=== PATIENT | female | born 1985 | race African-American/Black ===

== ENCOUNTER 2016-07-05 19:09 | Emergency (ER) | payer SELFPAY ==
[~2016-07-05] VITALS: Ht 157.5 cm; Wt 98.2 kg
[~2016-07-05 19:09] MED LIST: ATARAX 25MG25 MG/TAB PO
[2016-07-05 19:13] VITALS: TEMP 98.9
[2016-07-05] MEDS ORDERED: CELEXA 20MG20 MG/TAB PO (19:17)
[2016-07-05 20:11] LABS: PH 5 (5-8); SQUAMOUS EPITHELIAL 0-2 /hpf; URINE APPEARANCE Clear; URINE BACTERIA Rare /hpf; URINE BILIRUBIN Negative (NEGATIVE); URINE BLOOD 1+ (NEGATIVE); URINE COLOR Yellow; URINE GLUCOSE Negative (NEGATIVE); URINE KETONE Negative (NEGATIVE); URINE RBC 0-2 /hpf; URINE UROBILINOGEN Negative (NEGATIVE)
[2016-07-05 21:00] VITALS: BP 138/78; PULSE 80
== END 2016-07-05 21:01 | disposition home or self-care (01) ==
LOC: COL.ER 19:09
PROVIDERS: Nurse Practitioner
DX: R35.0 Frequency of micturition (principal); Z32.02 Encounter for pregnancy test, result negative; Z97.5 Presence of (intrauterine) contraceptive device; F32.9 Major depressive disorder, single episode, unspecified; F41.9 Anxiety disorder, unspecified

== ENCOUNTER 2016-09-14 13:32 | Emergency (ER) | payer SELFPAY ==
[~2016-09-14] VITALS: Ht 157.5 cm; Wt 96.3 kg
[~2016-09-14 13:32] MED LIST changes: +CELEXA 20MG20 MG/TAB PO
[2016-09-14 13:34] VITALS: TEMP 99.5
[2016-09-14 14:33] LABS: BASO % 0.3 % (0.0-2.0); EOS # 0.1 (0.0-0.7); EOS % 0.4 % (0-4.0); GRAN # 9.5 (1.4-6.5); GRAN % 82.3 % (42.2-75.2); HEMATOCRIT 43.8 % (37.0-47.0); HEMOGLOBIN 14.9 g/dl (12.5-16.0); LYMPH # 1.3 (1.2-3.4); LYMPH % 11.2 % (20.0-51.0); MEAN CELL VOLUME 89 fl (80.0-100.0); MEAN CORPUSCULAR HEMOGLOBIN 30 pg (27.0-31.0); MEAN CORPUSCULAR HGB CONC 34 g/dl (33.0-37.0); MONO # 0.6 (0.1-0.6); MONO % 5.5 % (1.7-9.3); PLATELET COUNT 223 K/mm3 (130-400); RED BLOOD COUNT 4.93 M/mm3 (4.10-5.30); REDCELL DISTRIBUTION WIDTH-CV 11.8 % (11.5-14.5); WHITE BLOOD COUNT 11.5 K/mm3 (4.8-10.8)
[2016-09-14 14:44] LABS: ADJUSTED CALCIUM 9.1 mg/dL (8.4-10.2); ALANINE AMINOTRANSFERASE 24 U/L (9-52); ALKALINE PHOSPHATASE 83 U/L (50-136); ANION GAP 15 mmol/L (7-16); BILIRUBIN,TOTAL 1.5 mg/dL (0.0-1.0); BLOOD UREA NITROGEN 12 mg/dL (7-17); CALCIUM 9.9 mg/dL (8.4-10.2); CARBON DIOXIDE 26 mmol/L (22-30); CHLORIDE 103 mmol/L (98-107); CREATININE, serum 0.87 mg/dL (0.52-1.25); GLUCOSE 89 mg/dL (74-106); POTASSIUM 4.3 mmol/L (3.4-5.0); SODIUM 144 mmol/L (137-145); TOTAL PROTEIN 8.8 gm/dL (6.4-8.2)
[2016-09-14 14:56] LABS: ACETAMINOPHEN < 10 ug/mL (10-30); SALICYLATE < 1.0 mg/dL
[2016-09-14 15:10] LABS: AMPHETAMINE URINE NEGATIVE; BARBITURATES URINE NEGATIVE; BENZODIAZEPINES URINE NEGATIVE; BUPRENORPHINE URINE NEGATIVE; METHADONE URINE NEGATIVE; OPIATES URINE NEGATIVE; OXYCODONE URINE NEGATIVE; PHENCYCLIDINE URINE NEGATIVE; PROPOXYPHENE URINE NEGATIVE; THC CANNABINOIDS URINE NEGATIVE
[2016-09-14 15:40] VITALS: BP 110/60
[2016-09-14 16:33] VITALS: PULSE 79
== END 2016-09-14 17:11 | disposition home or self-care (01) ==
LOC: COL.ER 13:32
PROVIDERS: Physician Assistant
DX: F32.9 Major depressive disorder, single episode, unspecified (principal); F43.9 Reaction to severe stress, unspecified; R45.851 Suicidal ideations; F41.9 Anxiety disorder, unspecified

== ENCOUNTER 2016-10-08 15:58 | Emergency (ER) | payer SELFPAY ==
[~2016-10-08] VITALS: Ht 160 cm; Wt 95.9 kg
[2016-10-08 16:01] VITALS: TEMP 98.8
[2016-10-08 16:32] LABS: BASO % 0.3 % (0.0-2.0); EOS # 0.1 (0.0-0.7); EOS % 1.5 % (0-4.0); GRAN % 68.7 % (42.2-75.2); HEMATOCRIT 38.3 % (37.0-47.0); HEMOGLOBIN 13.1 g/dl (12.5-16.0); LYMPH # 1.6 (1.2-3.4); LYMPH % 21.9 % (20.0-51.0); MEAN CELL VOLUME 91 fl (80.0-100.0); MEAN CORPUSCULAR HEMOGLOBIN 31 pg (27.0-31.0); MEAN CORPUSCULAR HGB CONC 34 g/dl (33.0-37.0); MEAN PLATELET VOLUME 11.2 fl (7.4-10.4); MONO # 0.5 (0.1-0.6); MONO % 7.3 % (1.7-9.3); PLATELET COUNT 195 K/mm3 (130-400); RED BLOOD COUNT 4.23 M/mm3 (4.10-5.30); WHITE BLOOD COUNT 7.2 K/mm3 (4.8-10.8)
[2016-10-08 16:35] LABS: PH 8 (5-8); URINE APPEARANCE Clear; URINE BACTERIA Rare /hpf; URINE BILIRUBIN Negative (NEGATIVE); URINE BLOOD Negative (NEGATIVE); URINE COLOR Straw; URINE GLUCOSE Negative (NEGATIVE); URINE KETONE Negative (NEGATIVE); URINE RBC 0-2 /hpf; URINE UROBILINOGEN Negative (NEGATIVE); URINE WBC 0-2 /hpf
[2016-10-08 16:37] LABS: ADJUSTED CALCIUM 9.2 mg/dL (8.4-10.2); ALBUMIN 4.3 gm/dL (3.5-5.0); BILIRUBIN,TOTAL 0.8 mg/dL (0.0-1.0); CALCIUM 9.4 mg/dL (8.4-10.2); CREATININE, serum 0.66 mg/dL (0.52-1.25); POTASSIUM 3.8 mmol/L (3.4-5.0); TOTAL PROTEIN 7.7 gm/dL (6.4-8.2)
[2016-10-08] MEDS ORDERED: ULTRAM 50MG TAB50 MG PO (17:30)
[2016-10-08] MEDS ORDERED: PRIL40 PO (17:30)
[2016-10-08] MEDS ORDERED: ZOFRAN8 MG PO (17:30)
[2016-10-08 17:49] VITALS: BP 116/73; PULSE 64
== END 2016-10-08 17:51 | disposition home or self-care (01) ==
LOC: COL.ER 15:58
PROVIDERS: Emergency Medicine
DX: R10.13 Epigastric pain (principal); R10.11 Right upper quadrant pain; R63.0 Anorexia; R11.0 Nausea
CPT/HCPCS: J1170; J1885; J2405; J2765; J7030

== ENCOUNTER 2016-12-23 17:49 | Emergency (ER) | payer SELFPAY ==
[~2016-12-23] VITALS: Ht 157.5 cm; Wt 100.0 kg
[~2016-12-23 17:49] MED LIST changes: +PRIL40 PO; +ULTRAM 50MG TAB50 MG PO; +ZOFRAN8 MG PO
[2016-12-23 17:53] VITALS: BP 116/70; TEMP 99
[2016-12-23] MEDS ORDERED: PRENATAL (17:56)
[2016-12-23 18:46] VITALS: PULSE 67
== END 2016-12-23 18:47 | disposition home or self-care (01) ==
LOC: COL.ER 17:49
DX: O21.9 Vomiting of pregnancy, unspecified (principal); O99.341 Other mental disorders complicating pregnancy, first trimester; F32.9 Major depressive disorder, single episode, unspecified; F41.9 Anxiety disorder, unspecified; Z3A.01 Less than 8 weeks gestation of pregnancy; Z98.890 Other specified postprocedural states

== ENCOUNTER 2017-06-22 16:07 | Emergency (ER) | payer MEDICAID ==
[~2017-06-22] VITALS: Ht 154.9 cm; Wt 115.9 kg
[~2017-06-22 16:07] MED LIST changes: +PRENATAL PO
[2017-06-22 16:10] VITALS: TEMP 97.4
[2017-06-22] MEDS ORDERED: CALCIUM CARBON650 M2 PO (16:32)
[2017-06-22 16:33] LABS: COLLECTION METHOD CLEAN CATCH
[2017-06-22 16:40] LABS: PH 5 (5-8); URINE APPEARANCE Clear; URINE BACTERIA Rare /hpf; URINE BILIRUBIN Negative (NEGATIVE); URINE BLOOD Negative (NEGATIVE); URINE COLOR Amber; URINE GLUCOSE Negative (NEGATIVE); URINE KETONE Negative (NEGATIVE); URINE LEUKOCYTE ESTERASE Negative (NEGATIVE); URINE NITRATE Negative (NEGATIVE); URINE PROTEIN(semi-quant) 2+ (NEGATIVE); URINE RBC 0-2 /hpf
[2017-06-22 16:48] LABS: BASO % 0.2 % (0.0-2.0); EOS % 0.3 % (0-4.0); GRAN # 12.9 (1.4-6.5); GRAN % 87.2 % (42.2-75.2); LYMPH # 0.8 (1.2-3.4); LYMPH % 5.3 % (20.0-51.0); MEAN CELL VOLUME 89 fl (80.0-100.0); MEAN CORPUSCULAR HEMOGLOBIN 32 pg (27.0-31.0); MEAN CORPUSCULAR HGB CONC 35 g/dl (33.0-37.0); MONO # 0.9 (0.1-0.6); PLATELET COUNT 153 K/mm3 (130-400); REDCELL DISTRIBUTION WIDTH-CV 13.7 % (11.5-14.5)
[2017-06-22 16:53] LABS: HEMATOCRIT 33.9 % (37.0-47.0)
[2017-06-22 17:02] LABS: ALBUMIN 3.5 gm/dL (3.5-5.0); BILIRUBIN,TOTAL 0.5 mg/dL (0.0-1.0); CALCIUM 9.1 mg/dL (8.4-10.2); CREATININE, serum 0.71 mg/dL (0.52-1.25); POTASSIUM 4.5 mmol/L (3.4-5.0)
[2017-06-22 17:03] LABS: C-REACTIVE PROTEIN 0.5 mg/dL (0.0-0.9)
[2017-06-22 17:45] VITALS: BP 139/82; PULSE 59
== END 2017-06-22 17:49 | disposition home or self-care (01) ==
LOC: COL.ER 16:07
PROVIDERS: Emergency Medicine
DX: O26.893 Other specified pregnancy related conditions, third trimester (principal); O99.343 Other mental disorders complicating pregnancy, third trimester; R10.11 Right upper quadrant pain; R10.31 Right lower quadrant pain; F32.9 Major depressive disorder, single episode, unspecified; F60.3 Borderline personality disorder; F41.9 Anxiety disorder, unspecified; Z3A.33 33 weeks gestation of pregnancy; Z98.890 Other specified postprocedural states
CPT/HCPCS: J2270; J2405; J7030

== ENCOUNTER 2017-06-22 17:42 | Outpatient (CLI) | payer MEDICAID ==
[~2017-06-22] VITALS: Ht 154.9 cm; Wt 115.9 kg
[~2017-06-22 17:42] MED LIST changes: +CALCIUM CARBON650 M2 PO
[2017-06-22 18:01] VITALS: BP 157/76; PULSE 56; TEMP 98.2
[2017-06-22 18:15] VITALS: BP 157/76; PULSE 56; TEMP 98.2
[2017-06-22 18:38] VITALS: BP 159/87; PULSE 57
[2017-06-22 19:30] VITALS: BP 147/82; PULSE 57
[2017-06-22 20:04] VITALS: BP 149/80; PULSE 59
== END 2017-06-22 20:15 | disposition short-term general hospital (02) ==
LOC: LDRO 17:42 → LDR 17:45 → LDRO 20:15
DX: O26.893 Other specified pregnancy related conditions, third trimester (principal); Z3A.33 33 weeks gestation of pregnancy
CPT/HCPCS: OP; J0702; J3105; J7120

== ENCOUNTER 2019-04-13 08:55 | Emergency (ER) | payer MEDICARE ==
[~2019-04-13] VITALS: Ht 154.9 cm; Wt 113.6 kg
[2019-04-13 09:07] VITALS: BP 135/72; TEMP 97.8
[2019-04-13] MEDS ORDERED: ATARAX 25MG25 MG/TAB PO (09:27)
[2019-04-13] MEDS ORDERED: PROZAC 20MG20 MG PO (09:27)
[2019-04-13 09:38] LABS: STREP SCREEN NEGATIVE
[2019-04-13 10:19] VITALS: PULSE 86
== END 2019-04-13 10:24 | disposition home or self-care (01) ==
LOC: COL.ER 08:55
PROVIDERS: Physician Assistant
DX: J03.90 Acute tonsillitis, unspecified (principal); B34.9 Viral infection, unspecified; F32.9 Major depressive disorder, single episode, unspecified; F41.9 Anxiety disorder, unspecified

== ENCOUNTER 2022-06-05 20:29 | Emergency (ER) | payer MEDICARE ==
[~2022-06-05] VITALS: Ht 162.6 cm; Wt 113.6 kg
[~2022-06-05 20:29] MED LIST changes: +PROZAC 20MG20 MG PO
[2022-06-05 20:31] VITALS: TEMP 98.9
[2022-06-05 21:07] LABS: COLLECTION METHOD CLEAN CATCH
[2022-06-05 21:11] LABS: BASO % 0.1 % (0.0-2.0); GRAN # 6.5 K/mm3 (1.4-6.5); GRAN % 88.4 % (42.2-75.2); HEMATOCRIT 38.6 % (37.0-47.0); HEMOGLOBIN 12.8 g/dl (12.5-16.0); LYMPH # 0.5 K/mm3 (1.2-3.4); LYMPH % 6.3 % (20.0-51.0); MEAN CELL VOLUME 81 fl (80.0-100.0); MEAN CORPUSCULAR HEMOGLOBIN 27 pg (27-31); MEAN CORPUSCULAR HGB CONC 33 g/dl (33.0-37.0); MEAN PLATELET VOLUME 11.3 fl (7.4-10.4); MONO # 0.4 K/mm3 (0.1-0.6); MONO % 4.8 % (1.7-9.3); PLATELET COUNT 211 K/mm3 (130-400); RED BLOOD COUNT 4.77 M/mm3 (4.10-5.30)
[2022-06-05 21:18] LABS: URINE APPEARANCE Clear (CLEAR/HAZY); URINE COLOR Yellow (YELLOW); URINE GLUCOSE Negative (NEGATIVE); URINE KETONE Negative (NEGATIVE); URINE NITRATE Negative (NEGATIVE); URINE PROTEIN(semi-quant) TRACE (NEGATIVE); URINE UROBILINOGEN 0.2 E.U/dL (0.2-1.0)
[2022-06-05 21:19] LABS: MUCOUS Present (NOT PRESENT); URINE BACTERIA None Seen /hpf (NONE SEEN); URINE BLOOD 1+ (NEGATIVE); URINE RBC 0-2 /hpf (0-2)
[2022-06-05 21:27] LABS: ALBUMIN 4.2 gm/dL (3.5-5.0); C-REACTIVE PROTEIN 2.63 mg/dL (0.00-0.50); CREATININE, serum 0.89 mg/dL (0.57-1.11); POTASSIUM 3.4 mmol/L (3.5-4.5); TOTAL PROTEIN 8.3 gm/dL (6.2-8.1)
[2022-06-05] MEDS ORDERED: ZOFRAN ODT4 MG PO (21:47)
[2022-06-05 23:04] VITALS: BP 146/97; PULSE 89
== END 2022-06-05 23:12 | disposition home or self-care (01) ==
LOC: COL.ER 20:29
PROVIDERS: Family Medicine
DX: K52.9 Noninfective gastroenteritis and colitis, unspecified (principal); Z28.310 Unvaccinated for COVID-19
CPT/HCPCS: J2405; J7120

== ENCOUNTER 2023-10-22 13:24 | Emergency (ER) | payer MEDICARE ==
[~2023-10-22] VITALS: Ht 157.5 cm; Wt 122.7 kg
[~2023-10-22 13:24] MED LIST changes: +AMOXICILLIN 8751 TAB PO; +ZOFRAN ODT4 MG PO
[2023-10-22] MEDS ORDERED: CEPHALEXIN500 M1 PO (15:15)
[2023-10-22 16:11] VITALS: BP 159/94; PULSE 90; TEMP 99.9
== END 2023-10-22 16:11 | disposition home or self-care (01) ==
LOC: COL.ER 13:24
DX: J03.90 Acute tonsillitis, unspecified (principal)